=== PATIENT | female | born 2000 | race American Indian/Alaskan Native ===

== ENCOUNTER 2019-11-07 15:27 | Emergency (ER) | payer OTHER, MEDICAID, SELFPAY ==
[2019-11-07 15:38] VITALS: BP 117/54; PULSE 84; RESP 18; TEMP 36.3; O2SAT 98; BMI 20.3
[2019-11-07 17:43] VITALS: BP 130/77; PULSE 57; RESP 18; O2SAT 99
--- NOTE | 2019-11-07 18:31 | PC.NURSE ---
provider, Bruno aware of [place] visits and no labs drawn here until she evaluates her. pt is comfortable and resting without incident. vss.
[2019-11-07 19:15] VITALS: BP 121/67; PULSE 80; O2SAT 98
[2019-11-07] MEDS: MAG HYDROX/ALUM/SIMETH 30 ML UDC PO (19:19)
--- NOTE | 2019-11-08 01:09 | ED.ABDPAIN ---
HPI - Abdominal Pain <EMERY Vega - Last Filed: 11/08/19 01:26> General Chief Complaint: Abdominal Pain Stated Complaint: Vomitting continually Time Seen by Provider: 11/07/19 17:52 Source: patient Mode of arrival: Wheelchair Limitations: no limitations History of Present Illness HPI narrative: This is a 19-year-old female, nonsmoker, presents to ED after she was evaluated at [facility] yesterday and this morning with recurring nausea and vomiting. Patient reports while she was waiting to be seen in ED at [facility], her symptoms improved and no longer has nausea and vomiting when she was evaluated. Patient was evaluated with lab tests each visits to [facility] and treated with IV fluid, Haldol, potassium replacement, promethazine, and Zofran and discharged to home with Juju Duval and was diagnosed with recurrent vomiting related to cannabinoid hyperemesis syndrome. After patient was discharged to home she was start vomiting again on the way to home and mother decided bring patient to [facility] Emergency room for re-evaluation. Lab tests from these 2 visits were unremarkable except hypokalemia with potassium level of 3.2 and 3.1. Her vital signs in [facility] was unremarkable with afebrile and within normal blood pressure and heart rate. Urine test and UA test or negative. Patient states when she takes hot shower or bath she finds this helps with her symptoms which is consistent with cannabinoid hyperemesis syndrome. Related Data Previous Rx's Medication Instructions Recorded promethazine 12.5 - 25 mg PO QID PRN #10 tab 11/07/19 promethazine 25 mg [place] Q6H PRN #1 each 11/07/19 Allergies Allergy/AdvReac Type Severity Reaction Status Date / Time No Known Drug Allergies Allergy Verified 11/07/19 15:43 Review of Systems <EMERY Vega - Last Filed: 11/08/19 01:26> Review of Systems Narrative: General: Denies fever, chills, fatigue, malaise, sweats. HEENT: Denies sinus pain, ear pain, sore throat, difficulty swallowing, dizziness. Respiratory: Denies dyspnea, cough, wheezing, hemoptysis, sputum. Cardiovascular: Denies chest pain, palpitations, orthopnea, edema. Gastrointestinal: Denies nausea, vomiting, abdominal pain, diarrhea, constipation, melena. : Denies dysuria, frequency, incontinence, hematuria, urinary retention. Musculoskeletal: Denies weakness, joint pain or bony pain. Skin: Denies rash, skin lesions, or other. Neurologic: Denies weakness, headache, numbness, change in speech, confusion, seizures, incoordination. Psychiatric: No concerning psychosocial issues. 12-point review of systems is negative except for those stated above. Patient History <EMERY Vega - Last Filed: 11/08/19 01:26> Medical History (Updated 11/08/19 @ 01:18 by EMERY Vega) No significant past medical history (Acute) Surgical History (Updated 11/08/19 @ :18 by EMERY Vega) No pertinent past surgical history (Acute) Social History Smoking Status: Never smoker Smoking Status: Never smoker alcohol intake frequency: holidays/special occasions only Substance Use Type: marijuana Exam <EMERY Vega - Last Filed: 11/08/19 01:26> Narrative Exam Narrative: GEN: Alert, oriented x 3, well appearing and nourished, and in no acute distress. Head: Normal cephalic, atraumatic. No scalp or temporal tenderness, palpable mass or rash. EYES: Pupils are equal, round, and reactive to light and accommodation. Extraocular muscles are intact bilaterally. There is no subconjunctival hemorrhage, exudate and sclera non-icteric. ENT: Hearing grossly intact. Nose without bleeding, purulent discharge or deviation. Mucous membrane moist, no mucosal lesion. Throat without erythema, tonsillar hypertrophy or exudate. Uvula in midline, airway patent. Neck: Trachea in midline. No JVD, non-tender without lymphadenopathy. No masses or thyroid megaly. Supple, non-tender and no meningeal signs. CARDIAC: Normal regular rate and rhythm without murmurs, gallops, or rubs. No chest wall tenderness. No peripheral edema, cyanosis or pallor. Capillary refill is less than 2 seconds. RESPIRATORY: Lungs are clear to auscultate bilaterally. No cough, wheezes, rales, or rhonchi. No stridor, respiratory distress, increase work of breathing, or accessary muscle used. ABD: Abdomen soft and non-distended. Very mild tenderness in upper abdomen. No Grissom's sign. No guarding or rebound tenderness to palpate. Bowel sounds are normal in all 4 quadrants. There is no palpable masses or organomegaly. EXT: Full painless ROM of all extremities with no loss of sensation, strength, effusion or edema. SKIN: Warm, dry, normal color for patient. No erythema, lesions or rash over visible areas. BACK: Nontender without deformity or crepitance. No flank tenderness. NEUROLOGICAL: Alert and oriented to place, time and person. Sensation and motor function intact bilaterally. No facial droops, dysphasia. PSYCHIATRIC: Good judgement and reason, without hallucinations, abnormal affect or abnormal behaviors during the examination. Patient is not suicidal. Initial Vital Signs Initial Vital Signs: Vital Signs Temperature 97.3 F L 11/07/19 15:38 Pulse Rate 84 11/07/19 15:38 Respiratory Rate 18 11/07/19 15:38 Blood Pressure 117/54 L 11/07/19 15:38 Pulse Oximetry 98 11/07/19 15:38 <Rekha Sage MD - Last Filed: 11/08/19 03:38> Initial Vital Signs Initial Vital Signs: Vital Signs Temperature 97.3 F L 11/07/19 15:38 Pulse Rate 84 11/07/19 15:38 Respiratory Rate 18 11/07/19 15:38 Blood Pressure 117/54 L 11/07/19 15:38 Pulse Oximetry 98 11/07/19 15:38 Scores <EMERY Vega - Last Filed: 11/08/19 01:26> GCS [place] coma scale eye opening: Spontaneous Tj coma scale verbal response: Orientated [place] coma scale motor response: [place] commands Tj coma scale total score: 15 Course <EMERY Vega - Last Filed: 11/08/19 01:26> Orders Ordered: Discontinued Medications Al Hydrox/Mg Hydrox/Simethicone (Maalox Plus) 30 ml PO NOW ONE Stop: 11/07/19 19:13 Last Admin: 11/07/19 19:19 Dose: 30 ml Documented by: JOSE ROBERTO Vital Signs Vital signs: Vital Signs - 8 hr 11/07/19 17:43 11/07/19 19:15 Pulse Rate 57 L 80 Respiratory Rate 18 Blood Pressure [Left Arm] 130/77 121/67 Pulse Oximetry 99 98 <Rekha Sage MD - Last Filed: 11/08/19 03:38> Orders Ordered: Discontinued Medications Al Hydrox/Mg Hydrox/Simethicone (Maalox Plus) 30 ml PO NOW ONE Stop: 11/07/19 19:13 Last Admin: 11/07/19 19:19 Dose: 30 ml Documented by: RSTONE Vital Signs Vital signs: Vital Signs - 8 hr 11/07/19 17:43 11/07/19 19:15 Pulse Rate 57 L 80 Respiratory Rate 18 Blood Pressure [Left Arm] 130/77 121/67 Pulse Oximetry 99 98 MDM - Abdominal Pain <EMERY Vega - Last Filed: 11/08/19 01:26> Differential Diagnosis Differential diagnosis: Likely other (Not intractable nausea and vomiting, normal exam) Medical Records Attestation: I reviewed the patient's medical records. ECG Data Attestation: I personally reviewed and interpreted this ECG as follows: Prior ECG tracings: not available for review Interpretation: Normal sinus rhythm with sinus arrhythmia rate at 70. Normal [place]. WA interval 138, QRS duration 82, QT/QTC 416/449. No ST elevation or depression. MDM Narrative Medical decision making narrative: This is a 19-year-old female who presents to ED with resolved nausea and vomiting after she was evaluated and treated for recurring nausea and vomiting at [facility] yesterday and this morning before coming into ED. patient's physical exam was benign. Patient's lab tests at [facility] this morning and last night were unremarkable. Urine test was negative. No signs of urinary tract infection. She was treated with multiple anti anemic medication including Haldol, Zofran, promethazine, IV fluids. Patient received potassium replacement for hypokalemia of 3.1 and 3.2. Patient states has Zofran and Bentyl for home use. When patient was evaluated she was free of nausea or vomiting and declined further lab tests or treatment at this time. EKG was sinus rhythm. Patient offered additional antinausea medication fell again via p.o. and per rectal use if Zofran is not effective. Return precautions were discussed with the patient and patient advised to consider stop using marijuana to see if this is the cause for her symptoms and advised to use hot shower or bath if her symptoms recurs. Patient verbalized understanding and agreement with the treatment plan. Discharge Plan Departure Patient Disposition: Home Clinical Impression: Abdominal pain Qualifiers: Abdominal location: upper abdomen, unspecified Qualified Code(s): R10.10 - Upper abdominal pain, unspecified Nausea & vomiting Qualifiers: Vomiting type: unspecified Vomiting Intractability: non-intractable Qualified Code(s): R11.2 - Nausea with vomiting, unspecified Discharge Date/Time: 11/07/19 19:47 Instructions: DI for Abdominal Pain-Adult, Nausea and Vomiting-Adult Activity Restrictions/Additional Instructions: You have been diagnosed with [improved nausea and vomiting, epigastric discomfort. You were evaluated and treated at [facility] yesterday and today. When you arrived to ED at [facility] your symptoms were improved. No further tests were done and you have deferred at this time.]. What to do: *Take your medications as directed. Please try to take Zofran 1st that you have been prescribed from [facility] for recurring nausea and vomiting. You can add either orally or rectally form of Promethazine/Phenergan as needed if Zofran is not helping for your symptoms. Promethazine/panic and can cause drowsiness so please take precautions such as not driving, drinking alcohol or operating heavy equipments. This medication have been transmitted [place] [email or web address] [place] Please start with clear liquids such as ice chip, water, sports drinks, Jell-O, broth, popsicles to hydrate in a small amount at a time. *Follow up with your primary care provider in 2-3 days, call for an appointment. Let them know you were seen in the ED and that we asked you to be seen in follow up. *Return to ED if you have any new, worsening, or concerning symptoms, such as [chest pain, breathing difficulty, unable to tolerate fluids, fever, pain or any acute concerns]. Prescriptions: New promethazine 25 mg tablet 12.5 - 25 mg PO QID PRN (Reason: nausea and vomiting) Qty: 10 RF: 0 promethazine 25 mg suppository 25 mg [place] Q6H PRN (Reason: nausea and vomiting) Qty: 1 RF: 0 <Rekha Sage MD - Last Filed: 11/08/19 03:38> Cosign ED Attending Cosignature Attestation: I was immediately available in the department for consultation throughout this patient's visit. I agree with documentation as above. Rekha Sage MD
== END 2019-11-07 19:47 | disposition home or self-care (01) ==
PROVIDERS: Emergency Provider Nurse Practitioner Family
DX: R10.10 Upper abdominal pain, unspecified (principal); R11.2 Nausea with vomiting, unspecified
CPT/HCPCS: 93005; 99283